=== PATIENT | female | born 1965 | race Caucasian/White ===

== ENCOUNTER → 2023-03-25 | Outpatient (CLI) | payer MEDICARE, OTHER ==
[~2023-03-25] MED LIST: APRESOLINE 10MG10 MG PO; ATIVAN; ATORVASTATIN; CLEOCIN HCL300 MG PO; D3-5050000 IU PO; DESYREL 100MG100 MG PO; EFFEXOR XR150 MG PO; EUTHYROX125 MCG PO; FERROUS GL325 MG/TAB; HCTZ 25MG TAB25 MG PO; HCTZ12.5TAB PO; KLONOPIN 1MG1 MG PO; LEVOTHYROXINE PO; NORVASC 10MG10 MG PO; PERCOCET 325 MG1 TA2 PO; PRINIVIL40 MG PO; SEROQUEL 1100 MG/TAB PO; SEROQUEL XR400 M1 PO; SEROQUEL300 MG PO; SEROQUEL400 MG PO; VRAYLAR6 MG PO
== END ==
LOC: COL.PUL 13:01
DX: J44.9 Chronic obstructive pulmonary disease, unspecified (principal); F17.200 Nicotine dependence, unspecified, uncomplicated